=== PATIENT | male | born 1950 | race Two or more races ===

== ENCOUNTER 2020-07-10 05:35 | Inpatient (IN) | payer OTHER ==
[~2020-07-10 05:35] MED LIST: COZAAR50 MG PO
[2020-07-11] MEDS ORDERED: MIRALAX17 GM PO (07:28)
[2020-07-11] MEDS ORDERED: ULTRAM50 MG PO (07:28)
[2020-07-11] MEDS ORDERED: TYLENOL ARTHRI650 MG PO (07:28)
== END 2020-07-13 10:32 | disposition home or self-care (01) | DRG 355 ==
LOC: CIR.AMB 05:35 → SURG 10:27
PROVIDERS: ADMIT Surgery; ATTEND Surgery
PROC: 0WUF4JZ Supplement Abdominal Wall with Synthetic Substitute, Percutaneous Endoscopic Approach (ICD-10-PCS; principal; 2020-07-10 07:00)
DX: K42.0 Umbilical hernia with obstruction, without gangrene (principal)